=== PATIENT | female | born 1970 | race Caucasian/White ===

== ENCOUNTER 2023-09-29 20:40 | Emergency (ER) | payer OTHER, SELFPAY ==
[2023-09-29 20:54] VITALS: BMI 35.1
[2023-09-29 21:16] VITALS: BP 122/78
[2023-09-29 21:23] LABS: % Basophils 0.7 % (0-2); % Eosinophils 1.3 % (0-6); % Immature Granulocytes 0.2 % (0-0.5); % Lymphocytes 8.2 % (20.5-51.1); % Monocytes 4.4 % (1.7-9.3); % Neutrophils 85.2 % (42.2-75.2); Absolute Basophils 0.1 10^3/uL (0-0.2); Absolute Eosinophils 0.1 10^3/uL (0-0.7); Absolute Lymphocytes 0.8 10^3/uL (1.2-3.4); Absolute Monocytes 0.4 10^3/uL (0.1-0.6); Hematocrit 40.6 % (37.0-47.0); Hemoglobin 14.6 g/dL (12.0-16.0); Mean Corpuscular Hgb 29.6 pg (27.0-31.0); Mean Corpuscular Volume 82.2 fL (81.0-99.0); Mean Platelet Volume 9.7 fL (7.4-10.4); Nucleated Red Blood Cells % 0 %; Platelet Count 237 10^3/uL (130-400); Red Blood Cell Count 4.94 10^6/uL (4.20-5.40); Red Cell Dist. Width 13.2 % (11.5-14.5); White Blood Cell Count 9.3 10^3/uL (4.8-10.8)
[2023-09-29 21:39] LABS: ALT (SGPT) 27 U/L (0-35); AST (SGOT) 33 U/L (14-36); Albumin 4.8 g/dl (3.5-5.0); Alkaline Phosphatase 70 U/L (38-126); Blood Urea Nitrogen 17 mg/dl (7-17); Calcium 9.6 mg/dl (8.4-10.2); Carbon Dioxide 22 mmol/L (22-30); Chloride 104 mmol/L (98-107); Estimated Creatinine Clearance 94 ml/min; Glucose 104 mg/dl (70-99); Potassium 3.8 mmol/L (3.5-5.1); Sodium 136 mmol/L (135-145); Total Bilirubin 0.5 mg/dl (0.2-1.3); Total Protein 7.8 g/dl (6.3-8.2); eGFR > 60.00
[2023-09-29 21:48] LABS: Troponin I < 0.012 ng/ml
--- NOTE | 2023-09-29 23:08 | ED.GENMED ---
History of Present Illness
General
Chief Complaint: Heart Rate Problem
Source: patient
Exam Limitations: none
Time Seen by Provider: 09/29/23 22:14
Nursing documentation reviewed up to this point in time: agreed with
Travel History
Have you had any contact with someone who has COVID-19?: No
Do you have any symptoms of coronavirus? Fever > 100 degrees, chills, cough, shortness of breath, sore throat, loss of taste or smell, muscle aches, or headache?: No
History of Present Illness
History of Present Illness:
This is a 53-year-old woman ( goes by name Jesi) with history of hypertension, maintained on amlodipine as well as irbesartan she also has history of advanced DJD of knees and underwent successful right total knee replacement a year and a half
ago. She exercises on a regular basis on stationary bike as well as participates in [employer] exercise regimen. She is a full-time teacher and does admit to suffering several URIs this winter with first URI in June and the most recent approximately
3 weeks ago. Moderate URI symptoms with cough, congestion but no significant fever and she did not seek medical treatment for URIs nor home COVID testing.
Over the past 3 weeks however she has noted poor exercise tolerance with decreased endurance, tachycardia with only mild exercise accompanied with dyspnea on exertion and she has also noted some posterior neck pain that has been persistent over the
past several weeks perhaps months. She has noticed some right wrist pain with moderate exercise as well.
Posterior neck pain improves with massage. No radiation of the pain, no weakness nor numbness.
She has history of exercise-induced asthma which is generally well-controlled and current symptoms feel quite different from her asthma exacerbations.
She denies leg pain or swelling but she did drive to [facility] and back 2 weeks ago.
She has had a rare dry cough the past day or 2 but denies nasal congestion, no sore throat, no fever.
She has been in touch with a protective signal installer helper friend of hers and has an initial appointment with protective signal installer helper scheduled for October 01.
She does admit to moderate stress recently, poor sleep as she has been helping to ready her high school daughter who is the lead in the local school play which has commenced this weekend.
She did consume half of a glass of wine tonight but other than this admits to rare alcohol use. She denies decongestant nor drug use.
She denies weight loss supplements and tends to stay away from any supplements/medications that could affect her hypertension.
Past History
Past History
ED Past Medical History: Asthma (Allergy induced), HTN, Hypercholesterolemia, Psychiatric (Anxiety) and Other (Diverticulitis)
ED Past Surgical History: and Orthopedic (Right total knee replacement 2021)
Social History
Tobacco: Non-smoker
Alcohol: Occasional
Drug: None
Personal:
Living: with family
Employment: Employed (Teacher)
Family History
Family History: Other (Noncontributory)
Phy Exam
Physical Exam
Physical Exam:
GENERAL: 53-year-old woman appears her stated age, bright and alert, pleasant, appears in no acute distress.
EYE: anicteric
NECK: Supple, nontender, no meningismus, no significant adenopathy. No JVD.
ENT: posterior pharynx has no injection nor edema, mild clear postnasal drip is noted, oral mucosa is moist. TM clear b/l, nares have mildly boggy pale blue turbinates without mucopus.
CARDIAC: Regular rate and rhythm. no murmur.
LUNGS: Clear breath sounds bilaterally, no acute respiratory distress, no wheezes/rales/rhonchi
ABDOMEN: Soft, nondistended, without focal tenderness, no r/g, no cvat. normoactive BS.
NEUROLOGICAL: Alert and oriented x3, no focal neuro deficits.
SKIN: Warm and dry, normal color, skin intact. No rash.
MUSCULOSKELETAL: No C/C/E. peripheral pulses are full and equal b/l. No palpable tenderness. Old, well-healed vertical surgical scar right anterior knee.
PSYCH: Normal and appropriate interaction.
Course
Orders/Labs/Results
Orders:
Orders
09/29/23 20:43
Electrocardiogram (*1) Urgent
Reason for Study: Tachycardia
EKG- Treatment ONCE
09/29/23 21:06
Cardiac Monitoring- Treatment ONCE
O2 Therapy [RESP] Urgent
Titrate/Wean O2 to maintain O2 sat greater than (%): 90
Special Instructions: Maintain sats >/=90%
Pulse Ox/spot Check [RESP] Urgent
Quantity: 1
Special Instructions: ON ROOM AIR
09/29/23 21:09
Complete Blood Count/With Diff Urgent
Comprehensive Metabolic Panel Urgent
TSH Reflex To Free T4 Urgent
Comment: ADD ON
Troponin I Urgent
09/29/23 22:41
Add On- LAB Urgent
Tests Added?: TSH w reflex to free T-4
09/29/23 22:42
CT Chest Pe Study Urgent
Comment:
Reason For Exam: SAMPSON, tachycardia x 2-3 weeks
09/29/23 22:54
COVID-19 Antigen Urgent
Source: Nasal Swab
Abnormal Lab Results
09/29/23
21:09
Absolute Neuts (auto) 8.0 H 10^3/uL
(1.4-6.5)
Absolute Lymphs (auto) 0.8 L 10^3/uL
(1.2-3.4)
Neutrophils % 85.2 H %
(42.2-75.2)
Lymphocytes % 8.2 L %
(20.5-51.1)
Glucose 104 H mg/dl
(70-99)
09/29/23 21:09
09/29/23 21:09
Vital Signs
Initial and Last Documented VS:
Initial Vital Signs
Temp Pulse Resp Pulse Ox
98.2 F 108 18 100
09/29/23 20:43 09/29/23 20:43 09/29/23 20:43 09/29/23 20:43
Last Documented Vital Signs
Temp Pulse Resp BP Pulse Ox
98.2 F 88 23 122/78 97
09/29/23 20:43 09/29/23 23:45 09/29/23 23:45 09/29/23 21:16 09/29/23 23:45
MDM/Problems Addressed
Differential Diagnosis Includes:
Concern for resolving URI, concern for ACS, thyroid disorder, anemia, electrolyte abnormality. With history of recent lengthy travel to and from [facility] must also consider PE.
EKG shows mild sinus tachycardia otherwise unremarkable.
Noted to be mildly tachycardic at triage, tachycardia has resolved to normal sinus rhythm in the 80s at rest. Patient states her normal resting heart rate is in the 70s to 80s.
Labs thus far unremarkable, normal CBC, unremarkable chemistries, troponin is negative. With ongoing symptoms over the past 3 weeks, negative troponin, ACS is less likely.
Will check TSH, COVID antigen and will plan for CT of the chest/PE study
Chronic conditions affecting care: HTN and Asthma
*Radiology
Radiology exam reviewed: radiology read reviewed (CT of the chest shows no evidence of PE, clear lung johnson.)
*Pulse Oximetry
Patient hypoxic: no
*EKG
Interpreted by ED Provider?: Yes
Comparison EKG: changes noted (Sinus tachycardia is new compared to previous EKG March 2022 showing normal sinus rhythm, otherwise similar and unchanged)
Rate: tachycardiac
Rhythm: sinus
[place]: normal axis
Interval: normal interval
QRS Pattern: poor R-wave progression
Ischemia: no ischemia
*Quill Picking Machine Operator Interpretation
Rate: normal
Interpretation: normal
Rhythm: sinus
*Critical Care Note
Total Time (30-74mins, 75-104mins- exclusive of procedures): Not Applicable
Update Note
Update Note:
09/30/[address]23 [address] of the chest/PE study is unremarkable, no evidence of PE, clear lung johnson.
TSH is normal and COVID antigen is negative.
Patient continues to appear comfortable.
alarm security or surveillance monitor continues to show normal sinus rhythm in the 80s.
I suspect her exercise fatigue may be residual effects of recent URI along with recent increased stress, lack of sleep stemming from home/family activities.
Discussed importance of remaining well-hydrated on a daily basis, ensure proper sleep and follow-up with protective signal installer helper next week as already scheduled.
ED Attending Note
-
Portions of this chart may have been created with voice recognition software.� Occasional wrong word or��sound alike� substitutions may have occurred due to the inherent limitations of voice recognition software.
Discharge Plan
Departure
Patient Disposition: Home (Routine Discharge)
Date of Disposition: 09/30/23
Time of Disposition: 00:21
Patient with high blood pressure during this ER visit?: No
Condition: Good
Discharge Problem:
Sinus tachycardia, Exercise intolerance, Breathlessness on exertion
Instructions: Shortness of Breath (Dyspnea) (DC), Palpitations (DC)
Prescriptions:
No Action
amlodipine 2.5 mg Tablet
2.5 mg PO HS
amlodipine 5 mg Tablet
5 mg PO DAILY
fiber Tablet
1 tab PO DAILY
irbesartan 300 mg Tablet
300 mg PO DAILY
Referrals:
Ole Iverson PA-C [Family Provider] - Call in 1-3 days for appt
Activity Restrictions/Additional Instructions:
Follow-up with protective signal installer helper on Sunday as already scheduled.
Try to get an adequate night sleep on a nightly basis.
Stay well-hydrated on a daily basis.
Interventions
Interventions:
*Risk Screen - Suicide Last Done: 09/29/23 20:43
*General Assessment Last Done: 09/29/23 20:43
*Neglect/Abuse Screening Last Done: 09/29/23 21:07
ED- Fall Risk Assessment Last Done: 09/29/23 21:07
*ED COVID-19 Vaccine History Last Done: 09/29/23 20:43
ED- Cardiac Assessment Last Done: 09/29/23 21:07
ED- Pulmonary Assessment Last Done: 09/29/23 21:07
Discharge Date and Time
Print Language: KHMER
[2023-09-29 23:15] LABS: COVID-19 Antigen Negative (Negative)
[2023-09-29 23:50] LABS: TSH Reflex To Free T4 1.04 uIU/ml (0.47-4.68)
[2023-09-30 00:30] VITALS: BP 132/76
== END 2023-09-30 00:36 | disposition home or self-care (01) ==
LOC: EMR 20:40
PROVIDERS: Student in an Organized Health Care Education/Training Program; EMERGENCY PHYSICIAN Emergency Medicine; FAMILY PHYSICIAN Physician Assistant Medical
DX: R00.0 Tachycardia, unspecified (principal); R06.09 Other forms of dyspnea; Z72.3 Lack of physical exercise; I10 Essential (primary) hypertension; J45.909 Unspecified asthma, uncomplicated; Z11.52 Encounter for screening for COVID-19
CPT/HCPCS: 99285; 71275; 80053; 84443; 84484; 85025; 87811; 93005; Q9967

== ENCOUNTER → 2023-10-30 07:40 | Outpatient (REF) | payer OTHER, SELFPAY | LOC: RCS 07:40 | PROVIDERS: ATTENDING PHYSICIAN Internal Medicine Cardiovascular Disease; FAMILY PHYSICIAN Physician Assistant Medical | DX: R06.09 Other forms of dyspnea (principal) | CPT/HCPCS: 93017 ==

== ENCOUNTER → 2023-11-02 15:59 | Outpatient (REF) | payer OTHER, SELFPAY | LOC: RCS 15:59 | PROVIDERS: ATTENDING PHYSICIAN Internal Medicine Cardiovascular Disease; FAMILY PHYSICIAN Physician Assistant Medical | DX: R06.09 Other forms of dyspnea (principal) | CPT/HCPCS: 93306 ==

== ENCOUNTER → 2023-11-29 12:49 | Outpatient (REF) | payer OTHER, SELFPAY | LOC: RCS 12:49 | PROVIDERS: ATTENDING PHYSICIAN Internal Medicine Cardiovascular Disease; FAMILY PHYSICIAN Physician Assistant Medical | DX: I10 Essential (primary) hypertension (principal); R06.09 Other forms of dyspnea; E78.5 Hyperlipidemia, unspecified | CPT/HCPCS: 93017; 93350 ==